=== PATIENT | male | born 1955 | race African-American/Black ===

== ENCOUNTER 2021-04-22 14:21 | Emergency (ER) | payer MEDICARE ==
[~2021-04-22] VITALS: Ht 180.3 cm; Wt 68.0 kg
[2021-04-22 14:35] VITALS: BP 159/90
[2021-04-22 20:02] LABS: BASOPHILS % 0.3 % (0.0-2.0); EOSINOPHILS % 1.4 % (0.0-5.0); HEMATOCRIT. 39.7 % (42.0-52.0); HEMOGLOBIN. 12.8 g/dL (14.0-18.0); LYMPHOCYTES % 32.3 % (20.0-50.0); MEAN CORPUSCULAR HEMOGLOBIN 28.8 pg (28.0-32.0); MEAN CORPUSCULAR VOLUME 89.7 fL (80.0-94.0); MEAN PLATELET VOLUME 8.8 fl (7.4-10.4); PLATELET 175 x1000/uL (130-400); RED BLOOD CELL COUNT 4.43 mill/uL (4.7-6.1); RED CELL DISTRIBUTION WIDTH 14.5 % (11.6-14.6)
[2021-04-22 20:16] LABS: CHLORIDE 108 mEq/L (98-107)
[2021-04-22 22:28] LABS: BASOPHILS % 0.4 % (0.0-2.0); EOSINOPHILS % 1.9 % (0.0-5.0); HEMATOCRIT. 40.1 % (42.0-52.0); LYMPHOCYTES % 27.8 % (20.0-50.0); MEAN CORPUSCULAR HEMOGLOBIN 28.9 pg (28.0-32.0); MEAN CORPUSCULAR VOLUME 89.3 fL (80.0-94.0); MONOCYTES % 10.4 % (2.0-8.0); NEUTROPHILS % 59.5 % (40.0-76.0); PLATELET 187 x1000/uL (130-400); RED BLOOD CELL COUNT 4.49 mill/uL (4.7-6.1); RED CELL DISTRIBUTION WIDTH 14.1 % (11.6-14.6)
[2021-04-22 22:38] LABS: CHLORIDE 107 mEq/L (98-107)
[2021-04-22] MEDS ORDERED: KETOROLAC 15MG/ML VIAL IV ONE (23:30)
[2021-04-22] MEDS ORDERED: ACETAMINOPHEN 325MG TABLET PO ONE (23:30)
[2021-04-23 00:48] LABS: CLARITY URINE CLEAR (CLEAR); COLOR URINE DARK YELLOW (YELLOW); KETONES URINE 2+ (NEGATIVE); LEUKOCYTE ESTERASE URINE NEGATIVE (NEGATIVE); NITRITE URINE NEGATIVE (NEGATIVE); OCCULT BLOOD URINE NEGATIVE (NEGATIVE); PH URINE 5.5 (4.5-8.0); PROTEIN URINE 2+ (NEGATIVE); SPECIFIC GRAVITY URINE 1.028 (1.005-1.030)
[2021-04-23] MEDS ORDERED: MAG355OR21 MT (03:25)
[2021-04-23] MEDS ORDERED: ONDA4TAB5 MT (03:25)
[2021-04-23] MEDS ORDERED: DICY10CA88 MT (03:25)
== END 2021-04-23 03:49 | disposition home or self-care (01) ==
LOC: ER 14:21
DX: R10.84 Generalized abdominal pain (principal); I10 Essential (primary) hypertension; Z85.038 Personal history of other malignant neoplasm of large intestine; Z90.49 Acquired absence of other specified parts of digestive tract
CPT/HCPCS: 36415; 74176; 80053; 81003; 83690; 85025; 96374; 99283; J1885

== ENCOUNTER 2023-12-04 14:06 | Emergency (ER) | payer MEDICARE, OTHER ==
[~2023-12-04] VITALS: Ht 177.8 cm; Wt 73.0 kg
[~2023-12-04 14:06] MED LIST: ALBU18HF2 PO; AMLO5TAB88 PO; HYDR-4009 PO; SIMV-43 PO
[2023-12-04 14:14] VITALS: O2SAT 100
[2023-12-04 15:02] VITALS: BP 121/79; PULSE 85; RESP 17; TEMP 36.50292; O2SAT 98
[2023-12-04 15:54] LABS: BASOPHILS % 0.7 % (0.0-2.0); EOSINOPHILS % 2.9 % (0.0-5.0); LYMPHOCYTES % 9.8 % (20.0-50.0); MEAN CORPUSCULAR HEMOGLOBIN 27.7 pg (28.0-32.0); MEAN CORPUSCULAR HGB CONC 30.6 g/dL (31.0-37.0); MEAN CORPUSCULAR VOLUME 90.7 fL (80.0-94.0); MEAN PLATELET VOLUME 9.7 fl (7.4-10.4); MONOCYTES % 13.3 % (2.0-8.0); NEUTROPHILS % 73.3 % (40.0-76.0); PLATELET 175 x1000/uL (130-400); RED BLOOD CELL COUNT 3.97 mill/uL (4.7-6.1); RED CELL DISTRIBUTION WIDTH 15.2 % (11.6-14.6)
[2023-12-04 15:57] LABS: CHLORIDE 104 mEq/L (98-107); POTASSIUM 5.1 mEq/L (3.5-5.1); SODIUM 134 mEq/L (136-145)
[2023-12-04 15:58] LABS: CALCIUM 9.5 mg/dL (8.7-10.4); CARBON DIOXIDE 21 mEq/L (21-32)
[2023-12-04 16:03] LABS: CREATININE 1.1 mg/dL (0.6-1.3); GLUCOSE 119 mg/dL (70-105); UREA NITROGEN BLOOD 25 mg/dL (9-23)
[2023-12-04 16:04] LABS: PROTHROMBIN TIME 10.9 sec (9.6-11.0)
[2023-12-04 16:05] LABS: TROPONIN I HIGH SENSITIVITY 9 ng/L (3.0-53)
== END 2023-12-04 19:18 | disposition home or self-care (01) ==
LOC: ER 14:06
DX: R55 Syncope and collapse (principal); I10 Essential (primary) hypertension; Z98.890 Other specified postprocedural states; Z79.899 Other long term (current) drug therapy; Z85.038 Personal history of other malignant neoplasm of large intestine
CPT/HCPCS: 36415; 71045; 80048; 84484; 85025; 93005; 99285

== ENCOUNTER 2024-02-14 12:12 | Emergency (ER) | payer OTHER ==
[~2024-02-14] VITALS: Ht 175.3 cm; Wt 75.0 kg
[~2024-02-14 12:12] MED LIST changes: +FOLI-43 PO; +THIA100T72 PO
[2024-02-14 12:19] VITALS: TEMP 98.3; O2SAT 100
[2024-02-14 13:44] LABS: CHLORIDE 104 mEq/L (98-107); POTASSIUM 4.1 mEq/L (3.5-5.1); SODIUM 138 mEq/L (136-145)
[2024-02-14 13:45] LABS: CARBON DIOXIDE 21 mEq/L (21-32)
[2024-02-14 13:46] LABS: CALCIUM 9.9 mg/dL (8.7-10.4)
[2024-02-14 13:48] LABS: HEMATOCRIT. 33.4 % (42.0-52.0); HEMOGLOBIN. 10.3 g/dL (14.0-18.0); MEAN CORPUSCULAR HEMOGLOBIN 30.5 pg (28.0-32.0); MEAN CORPUSCULAR HGB CONC 30.7 g/dL (31.0-37.0); MEAN CORPUSCULAR VOLUME 99.2 fL (80.0-94.0); MEAN PLATELET VOLUME 8.9 fl (7.4-10.4); PLATELET 216 x1000/uL (130-400); RED BLOOD CELL COUNT 3.37 mill/uL (4.7-6.1); RED CELL DISTRIBUTION WIDTH 17.9 % (11.6-14.6); WHITE BLOOD COUNT 4.1 x1000/uL (4.5-11.0)
[2024-02-14 13:50] LABS: CREATININE 1.2 mg/dL (0.6-1.3); GLUCOSE 95 mg/dL (70-105); UREA NITROGEN BLOOD 15 mg/dL (9-23)
[2024-02-14 13:51] LABS: TROPONIN I HIGH SENSITIVITY 12 ng/L (3.0-53)
[2024-02-14 13:54] LABS: PROTHROMBIN TIME 10.7 sec (9.6-11.0)
[2024-02-14 13:57] LABS: DIFFERENTIAL COMMENT 1
[2024-02-14 14:52] VITALS: BP 149/79; PULSE 92; RESP 16
[2024-02-14] MEDS: HYDROCODONE/ACETAMINOPHEN 5/325MG TABLET PO ONE (14:52)
[2024-02-14] MEDS ORDERED: DICL100G58 TP (15:16)
[2024-02-14 15:34] LABS: CLARITY URINE CLEAR (CLEAR); COLOR URINE YELLOW (YELLOW); GLUCOSE URINE NEGATIVE (NEGATIVE); KETONES URINE 2+ (NEGATIVE); LEUKOCYTE ESTERASE URINE NEGATIVE (NEGATIVE); NITRITE URINE NEGATIVE (NEGATIVE); OCCULT BLOOD URINE NEGATIVE (NEGATIVE); PH URINE 5.5 (4.5-8.0); PROTEIN URINE TRACE (NEGATIVE); SPECIFIC GRAVITY URINE 1.018 (1.005-1.030)
[2024-02-14 15:48] LABS: BACTERIA URINE NONE SEEN; RBC URINE 0-2 /hpf (0-2); SQUAMOUS EPITHELIAL CELL URINE RARE /lpf (RARE/1+); WBC URINE 0-2 /hpf (0-2)
[2024-02-14 16:12] LABS: PLATELET ESTIMATE NORMAL
[2024-02-14 16:16] LABS: ANISOCYTOSIS 1+
== END 2024-02-15 03:47 | disposition home or self-care (01) ==
LOC: ER 12:28
DX: R53.1 Weakness (principal); M25.531 Pain in right wrist; R51.9 Headache, unspecified; I10 Essential (primary) hypertension; Z79.899 Other long term (current) drug therapy; Z86.73 Personal history of transient ischemic attack (TIA), and cerebral infarction without residual deficits
CPT/HCPCS: 36415; 71045; 73100; 80048; 81003; 83880; 84484; 85025; 93005; 99285

== ENCOUNTER 2024-04-01 12:09 | Emergency (ER) | payer OTHER ==
[~2024-04-01] VITALS: Ht 170.2 cm; Wt 73.0 kg
[~2024-04-01 12:09] MED LIST changes: +DICL100G58 TP
[2024-04-01 12:11] VITALS: BP 132/83; PULSE 94; RESP 18; TEMP 36.8; O2SAT 100
[2024-04-01] MEDS: ACETAMINOPHEN 325MG TABLET PO ONE (14:38)
[2024-04-01 15:57] LABS: CHLORIDE 115 mEq/L (98-107); HEMATOCRIT. 38.1 % (42.0-52.0); HEMOGLOBIN. 12.2 g/dL (14.0-18.0); MEAN CORPUSCULAR HEMOGLOBIN 31.2 pg (28.0-32.0); MEAN CORPUSCULAR VOLUME 97.5 fL (80.0-94.0); MEAN PLATELET VOLUME 8.8 fl (7.4-10.4); PLATELET 254 x1000/uL (130-400); RED BLOOD CELL COUNT 3.91 mill/uL (4.7-6.1); RED CELL DISTRIBUTION WIDTH 15.1 % (11.6-14.6); SODIUM 146 mEq/L (136-145); WHITE BLOOD COUNT 4.9 x1000/uL (4.5-11.0)
[2024-04-01 15:58] LABS: CALCIUM 8.7 mg/dL (8.7-10.4); CARBON DIOXIDE 22 mEq/L (21-32)
[2024-04-01 15:59] LABS: DIFFERENTIAL COMMENT 1
[2024-04-01 16:03] LABS: CREATININE 0.9 mg/dL (0.6-1.3); GLUCOSE 80 mg/dL (70-105); UREA NITROGEN BLOOD 8 mg/dL (9-23)
[2024-04-01 16:29] LABS: PLATELET ESTIMATE NORMAL
[2024-04-01] MEDS: HYDROCODONE/ACETAMINOPHEN 5/325MG TABLET PO ONE (20:04)
[2024-04-12] MEDS ORDERED: NITR-87 MT (15:25)
== END 2024-04-01 20:17 | disposition home or self-care (01) ==
LOC: ER 12:09 → CANBEDREQ 19:12 → ER 20:17
DX: Z00.8 Encounter for other general examination (principal); I10 Essential (primary) hypertension; Z86.73 Personal history of transient ischemic attack (TIA), and cerebral infarction without residual deficits; Z79.899 Other long term (current) drug therapy
CPT/HCPCS: 36415; 80048; 85025; 99283

== ENCOUNTER 2024-09-24 20:00 | Emergency (ER) | payer MEDICARE, OTHER ==
[~2024-09-24] VITALS: Ht 177.8 cm; Wt 77.0 kg
[~2024-09-24 20:00] MED LIST changes: +AMYL1CAP59 PO; +NITR-87 MT; +PANT40TA51 PO
[2024-09-24 20:02] VITALS: O2SAT 99
[2024-09-24 20:55] LABS: BASOPHILS % 0.5 % (0.0-2.0); EOSINOPHILS % 4.2 % (0.0-5.0); HEMATOCRIT. 26.4 % (42.0-52.0); HEMOGLOBIN. 8.5 g/dL (14.0-18.0); LYMPHOCYTES % 42.5 % (20.0-50.0); MEAN PLATELET VOLUME 8.7 fl (7.4-10.4); MONOCYTES % 11.4 % (2.0-8.0); NEUTROPHILS % 41.4 % (40.0-76.0); PLATELET 201 x1000/uL (130-400); RED BLOOD CELL COUNT 2.75 mill/uL (4.7-6.1); RED CELL DISTRIBUTION WIDTH 15.7 % (11.6-14.6)
[2024-09-24 21:13] LABS: CREATININE 0.9 mg/dL (0.6-1.3)
[2024-09-24 21:14] LABS: ETHANOL BLOOD 276 mg/dL (<10); UREA NITROGEN BLOOD 13 mg/dL (9-23)
[2024-09-24 21:15] LABS: ASPARTATE AMINOTRANSFERASE 41 IU/L (<34)
[2024-09-24 21:16] LABS: BILIRUBIN DIRECT < 0.1 mg/dL (<=3.0); BILIRUBIN TOTAL < 0.2 mg/dL (0.1-1.0); PROTEIN TOTAL 6.2 g/dL (6.0-8.3)
[2024-09-24] MEDS: PANTOPRAZOLE 40MG DR TABLET PO ONE (22:21)
[2024-09-24] MEDS: HYDROCODONE/ACETAMINOPHEN 10/325MG TABLET PO ONE (22:21)
[2024-09-24] MEDS: ONDANSETRON 4MG ODT PO ONE (22:21)
[2024-09-25 00:24] VITALS: BP 86/61; PULSE 80; RESP 13; TEMP 36.8; O2SAT 99
[2024-10-12] MEDS ORDERED: OXYC-485 PO (16:15)
[2024-11-10] MEDS ORDERED: HYDR-4009 PO (12:02)
[2024-11-17] MEDS ORDERED: THIJ IM (14:25)
[2024-11-17] MEDS ORDERED: FOLI-43 PO (14:25)
== END 2024-09-25 00:26 | disposition home or self-care (01) ==
LOC: ER 20:00
DX: F10.129 Alcohol abuse with intoxication, unspecified (principal); I10 Essential (primary) hypertension; K86.1 Other chronic pancreatitis; Z85.038 Personal history of other malignant neoplasm of large intestine; Z86.73 Personal history of transient ischemic attack (TIA), and cerebral infarction without residual deficits; Z99.3 Dependence on wheelchair; Z79.899 Other long term (current) drug therapy; Y90.8 Blood alcohol level of 240 mg/100 ml or more
CPT/HCPCS: 36415; 80048; 80076; 80320; 85025; 93005; 99284; G0480

== ENCOUNTER 2024-10-04 15:17 | Emergency (ER) | payer MEDICARE, OTHER ==
[~2024-10-04] VITALS: Ht 180.3 cm; Wt 61.0 kg
[~2024-10-04 15:17] MED LIST changes: -AMYL1CAP59 PO; -NITR-87 MT; -PANT40TA51 PO
[2024-10-04 15:19] VITALS: O2SAT 100
[2024-10-04] MEDS ORDERED: ONDANSETRON HCL 4MG/2ML INJ IV ONE (15:30)
[2024-10-04] MEDS ORDERED: MORPHINE SULFATE 4 MG/ML INJ (FOR IV/IM USE) IV ONE (15:30)
[2024-10-04 16:05] LABS: BASOPHILS % 0.7 % (0.0-2.0); EOSINOPHILS % 2.7 % (0.0-5.0); HEMATOCRIT. 36.0 % (42.0-52.0); HEMOGLOBIN. 11.1 g/dL (14.0-18.0); LYMPHOCYTES % 48.3 % (20.0-50.0); MEAN PLATELET VOLUME 9.7 fl (7.4-10.4); MONOCYTES % 5.3 % (2.0-8.0); NEUTROPHILS % 43.0 % (40.0-76.0); PLATELET 141 x1000/uL (130-400); RED BLOOD CELL COUNT 3.60 mill/uL (4.7-6.1); RED CELL DISTRIBUTION WIDTH 16.0 % (11.6-14.6)
[2024-10-04 16:24] LABS: CREATININE 0.9 mg/dL (0.6-1.3); UREA NITROGEN BLOOD 10 mg/dL (9-23)
[2024-10-04 16:25] LABS: ASPARTATE AMINOTRANSFERASE 33 IU/L (<34)
[2024-10-04 16:26] LABS: BILIRUBIN DIRECT < 0.1 mg/dL (<=3.0); BILIRUBIN TOTAL < 0.2 mg/dL (0.1-1.0); PROTEIN TOTAL 7.4 g/dL (6.0-8.3)
[2024-10-04] MEDS: HYDROCODONE/ACETAMINOPHEN 10/325MG TABLET PO ONE (16:31)
[2024-10-04 21:15] VITALS: BP 110/64; PULSE 93; RESP 11; TEMP 36.4; O2SAT 99
== END 2024-10-04 22:18 | disposition home or self-care (01) ==
LOC: ER 15:17
DX: G89.29 Other chronic pain (principal); R10.9 Unspecified abdominal pain; F12.10 Cannabis abuse, uncomplicated; I10 Essential (primary) hypertension; Z79.899 Other long term (current) drug therapy; Z98.890 Other specified postprocedural states
CPT/HCPCS: 36415; 80048; 80076; 85025; 99285

== ENCOUNTER 2024-11-19 14:50 | Inpatient (IN) | payer MEDICARE, OTHER ==
[~2024-11-19] VITALS: Ht 180.3 cm; Wt 61.7 kg
[~2024-11-19 14:50] MED LIST changes: -AMLO5TAB88 PO; -DICL100G58 TP; -HYDR-4009 PO; -SIMV-43 PO; +THIJ IM
[2024-11-19 14:54] VITALS: O2SAT 98
[2024-11-19] MEDS ORDERED: KETOROLAC 15MG/ML VIAL IV ONE (15:15)
[2024-11-19 17:03] LABS: BASOPHILS % 0.6 % (0.0-2.0); EOSINOPHILS % 4.3 % (0.0-5.0); HEMATOCRIT. 36.6 % (42.0-52.0); HEMOGLOBIN. 11.3 g/dL (14.0-18.0); LYMPHOCYTES % 43.0 % (20.0-50.0); MEAN PLATELET VOLUME 8.8 fl (7.4-10.4); MONOCYTES % 6.9 % (2.0-8.0); NEUTROPHILS % 45.2 % (40.0-76.0); PLATELET 161 x1000/uL (130-400); RED BLOOD CELL COUNT 3.79 mill/uL (4.7-6.1); RED CELL DISTRIBUTION WIDTH 16.7 % (11.6-14.6)
[2024-11-19 17:18] LABS: CREATININE 0.9 mg/dL (0.6-1.3); UREA NITROGEN BLOOD 10 mg/dL (9-23)
[2024-11-19 17:28] LABS: ETHANOL BLOOD 377 mg/dL (<10)
[2024-11-19 17:44] LABS: TROPONIN I HIGH SENSITIVITY < 4 ng/L (3.0-53)
[2024-11-19] MEDS: KETOROLAC 15MG/ML VIAL IV SCH (20:27)
[2024-11-19] MEDS: SODIUM CHLORIDE 0.9% 1,000 ML IV ONE (20:27)
[2024-11-19 21:00] VITALS: BP 126/89; PULSE 70; RESP 21; TEMP 36.2; TEMP 36.2512; O2SAT 96
[2024-11-20] VITALS: BP 136/80; PULSE 75; RESP 19; TEMP 36; O2SAT 97
[2024-11-20] MEDS ORDERED: FOLIC ACID 1MG TABLET PO SCH (00:45)
[2024-11-20] MEDS ORDERED: THIAMINE HCL 100 MG/1 ML 2ML VIAL IM SCH (00:45)
[2024-11-20] MEDS ORDERED: MULTIVITAMINS,THER W-MINERALS TABLET PO SCH (00:45)
[2024-11-20] MEDS ORDERED: LORAZEPAM 1MG TABLET PO PRN (00:45)
[2024-11-20] MEDS ORDERED: NALOXONE HCL 0.4MG/ML VIAL IV PRN (01:00)
[2024-11-20] MEDS ORDERED: IPRATROPIUM/ALBUTEROL 0.5-3(2.5)MG/3ML NEB HHN PRN (01:45)
[2024-11-20] MEDS ORDERED: ONDANSETRON HCL 4MG/2ML INJ IV PRN (01:45)
[2024-11-20] MEDS ORDERED: MAGNESIUM/ALUMINUM HYDROXIDE/SIMETHICONE 30ML UDC PO PRN (01:45)
[2024-11-20] MEDS ORDERED: GUAIFENESIN 200MG/10ML SUGAR FREE UDC PO PRN (01:45)
[2024-11-20] MEDS ORDERED: DOCUSATE SODIUM 100MG CAPSULE PO PRN (01:45)
[2024-11-20] MEDS: ACETAMINOPHEN 325MG TABLET PO SCH (01:45)
[2024-11-20] MEDS ORDERED: CLONIDINE 0.1MG TABLET PO PRN (01:45)
[2024-11-20] MEDS: FOLIC ACID 1 MG, THIAMINE HCL 100 MG, MVI, ADULT NO.1 10 ML in DEXTROSE 5% WATER 1,000 ML IV ONE (02:08)
[2024-11-20 04:00] VITALS: BP 137/97; PULSE 20; RESP 20; TEMP 37.1; O2SAT 98
[2024-11-20] MEDS: KETOROLAC 30MG/ML VIAL IV PRN (05:42)
[2024-11-20 08:00] VITALS: BP 123/76; PULSE 80; RESP 19; TEMP 36.5; O2SAT 97
[2024-11-20] MEDS: PANTOPRAZOLE SODIUM 40 MG/VIAL IV SCH (08:50)
[2024-11-20] MEDS: ENOXAPARIN 40MG/0.4ML SYR SUBCUT SCH (09:00)
[2024-11-20] MEDS: MORPHINE SULFATE 4 MG/ML INJ (FOR IV/IM USE) IV PRN (09:29)
[2024-11-20 12:00] VITALS: BP 148/85; PULSE 100; RESP 19; TEMP 36.6; O2SAT 100
[2024-11-20 15:47] VITALS: BP 142/82; PULSE 100; RESP 19; TEMP 36.7; O2SAT 97
[2024-11-20 20:00] VITALS: BP 145/92; PULSE 97; RESP 20; TEMP 36.2; O2SAT 98
[2024-11-21] VITALS: BP 133/88; PULSE 87; RESP 20; TEMP 36.6; O2SAT 98
[2024-11-21 04:00] VITALS: BP 114/69; PULSE 78; RESP 19; TEMP 36.6; O2SAT 98
[2024-11-21 08:00] VITALS: BP 123/76; PULSE 83; RESP 19; TEMP 38.2; O2SAT 100
[2024-11-21 12:00] VITALS: BP 123/79; PULSE 84; RESP 19; TEMP 37.8; O2SAT 97
[2024-11-21 13:11] VITALS: BP 126/79; PULSE 84; RESP 19; TEMP 99.5
[2024-11-21 16:00] VITALS: BP 120/78; PULSE 75; RESP 19; TEMP 37.6; O2SAT 97
[2024-11-22] MEDS ORDERED: THIAMINE HCL 100MG TABLET PO SCH (09:00)
== END 2024-11-21 19:48 | disposition home or self-care (01) | DRG 438 ==
LOC: ER 14:50 → 8WST 17:29 → EDBEDREQTM 17:31 → EDBEDREQ 17:31 → ENRESERV 18:30
PROVIDERS: ADMIT Internal Medicine; ATTEND Internal Medicine
DX: K85.90 Acute pancreatitis without necrosis or infection, unspecified (principal); L89.153 Pressure ulcer of sacral region, stage 3; C18.9 Malignant neoplasm of colon, unspecified; E87.0 Hyperosmolality and hypernatremia; G89.3 Neoplasm related pain (acute) (chronic); K86.1 Other chronic pancreatitis; D18.03 Hemangioma of intra-abdominal structures; F10.229 Alcohol dependence with intoxication, unspecified; G89.4 Chronic pain syndrome; F17.210 Nicotine dependence, cigarettes, uncomplicated; I10 Essential (primary) hypertension; D64.9 Anemia, unspecified; M47.816 Spondylosis without myelopathy or radiculopathy, lumbar region; M54.16 Radiculopathy, lumbar region; Z74.01 Bed confinement status; Z86.73 Personal history of transient ischemic attack (TIA), and cerebral infarction without residual deficits; Z99.3 Dependence on wheelchair
CPT/HCPCS: 36415; 80048; 80320; 82550; 84484; 85025; 99285; A4606; J1650; J1885; J2270; J2470; J3411; J3490; J7030; J7070; G0480

== ENCOUNTER 2024-11-23 12:32 | Emergency (ER) | payer MEDICARE, OTHER ==
[~2024-11-23] VITALS: Ht 175.3 cm; Wt 73.0 kg
[2024-11-23 12:34] VITALS: O2SAT 98
[2024-11-23] MEDS: SODIUM CHLORIDE 0.9% 1,000 ML IV ONE ×2 (13:15→16:00)
[2024-11-23 15:14] LABS: BASOPHILS % 0.3 % (0.0-2.0); EOSINOPHILS % 5.6 % (0.0-5.0); HEMATOCRIT. 39.5 % (42.0-52.0); HEMOGLOBIN. 11.8 g/dL (14.0-18.0); LYMPHOCYTES % 42.4 % (20.0-50.0); MEAN PLATELET VOLUME 9.2 fl (7.4-10.4); MONOCYTES % 12.8 % (2.0-8.0); NEUTROPHILS % 38.9 % (40.0-76.0); PLATELET 69 x1000/uL (130-400); RED BLOOD CELL COUNT 3.94 mill/uL (4.7-6.1); RED CELL DISTRIBUTION WIDTH 17.0 % (11.6-14.6)
[2024-11-23 15:28] LABS: CREATININE 1.0 mg/dL (0.6-1.3)
[2024-11-23 15:29] LABS: UREA NITROGEN BLOOD 7 mg/dL (9-23)
[2024-11-23 15:30] LABS: ASPARTATE AMINOTRANSFERASE 25 IU/L (<34)
[2024-11-23 15:31] LABS: BILIRUBIN DIRECT < 0.1 mg/dL (<=3.0); BILIRUBIN TOTAL 0.2 mg/dL (0.1-1.0); PROTEIN TOTAL 6.8 g/dL (6.0-8.3)
[2024-11-23 15:37] LABS: ETHANOL BLOOD 300 mg/dL (<10)
[2024-11-23] MEDS ORDERED: CHLORDIAZEPOXIDE 25MG CAPSULE PO ONE (16:00)
[2024-11-23] MEDS: CHLORDIAZEPOXIDE 25MG CAPSULE PO SCH (17:21)
[2024-11-23 19:00] VITALS: TEMP 36.6
[2024-11-23] MEDS: ACETAMINOPHEN 325MG TABLET PO ONE (19:15)
[2024-11-24 01:21] VITALS: BP 121/81; PULSE 81; RESP 16; O2SAT 99
== END 2024-11-24 01:28 | disposition home or self-care (01) ==
LOC: ER 12:46
DX: F10.229 Alcohol dependence with intoxication, unspecified (principal); E87.0 Hyperosmolality and hypernatremia; R10.84 Generalized abdominal pain; I10 Essential (primary) hypertension; J44.9 Chronic obstructive pulmonary disease, unspecified; Z86.73 Personal history of transient ischemic attack (TIA), and cerebral infarction without residual deficits
CPT/HCPCS: 80076; 80048; 80320; 83690; 83735; 85025; 36415; 71045; 99285; J7030; G0480

== ENCOUNTER 2024-12-09 19:37 | Emergency (ER) | payer MEDICARE, OTHER ==
[~2024-12-09] VITALS: Ht 167.6 cm; Wt 73.0 kg
[2024-12-09 19:48] VITALS: O2SAT 97
[2024-12-09 21:25] VITALS: TEMP 36.8; O2SAT 98
[2024-12-09] MEDS: SODIUM CHLORIDE 0.9% 1,000 ML IV ONE (21:25)
[2024-12-09] MEDS: ACETAMINOPHEN 1000MG/100ML 100 ML IV ONE (21:57)
[2024-12-09] MEDS ORDERED: TOPUD MT (23:16)
[2024-12-09 23:30] VITALS: BP 101/65; PULSE 85; RESP 18
[2024-12-09] MEDS: HYDROCODONE/ACETAMINOPHEN 5/325MG TABLET PO ONE (23:30)
== END 2024-12-10 01:10 | disposition home or self-care (01) ==
LOC: ER 19:37 → CMPBEDREQ 12-10 07:30
DX: F10.229 Alcohol dependence with intoxication, unspecified (principal); I10 Essential (primary) hypertension; Z86.73 Personal history of transient ischemic attack (TIA), and cerebral infarction without residual deficits; Z85.038 Personal history of other malignant neoplasm of large intestine; Y90.9 Presence of alcohol in blood, level not specified
CPT/HCPCS: 99284; 96365; J7030; J0131

== ENCOUNTER 2024-12-11 15:36 | Inpatient (IN) | payer MEDICARE, OTHER ==
[~2024-12-11] VITALS: Ht 172.7 cm; Wt 56.2 kg
[~2024-12-11 15:36] MED LIST changes: -ALBU18HF2 PO; -FOLI-43 PO; -THIA100T72 PO; -THIJ IM; +TOPUD MT
[2024-12-11 15:37] VITALS: O2SAT 95
[2024-12-11] MEDS: SODIUM CHLORIDE 0.9% 1,000 ML IV ONE (16:00)
[2024-12-11 17:07] LABS: HEMATOCRIT. 34.1 % (42.0-52.0); HEMOGLOBIN. 10.8 g/dL (14.0-18.0); MEAN PLATELET VOLUME 8.3 fl (7.4-10.4); PLATELET 419 x1000/uL (130-400); RED BLOOD CELL COUNT 3.69 mill/uL (4.7-6.1); RED CELL DISTRIBUTION WIDTH 16.6 % (11.6-14.6)
[2024-12-11 17:23] LABS: CREATININE 0.7 mg/dL (0.6-1.3); UREA NITROGEN BLOOD 6 mg/dL (9-23)
[2024-12-11 17:24] LABS: TROPONIN I HIGH SENSITIVITY 7 ng/L (3.0-53)
[2024-12-11 17:25] LABS: ASPARTATE AMINOTRANSFERASE 18 IU/L (<34); BILIRUBIN DIRECT < 0.1 mg/dL (<=3.0); BILIRUBIN TOTAL < 0.2 mg/dL (0.1-1.0); PROTEIN TOTAL 6.5 g/dL (6.0-8.3)
[2024-12-11 17:56] LABS: EOSINOPHILS % MANUAL 1.0 % (0.0-5.0); LYMPHOCYTES % MANUAL 51.0 % (20.0-50.0); MONOCYTES % MANUAL 1.0 % (2.0-8.0); NEUTROPHILS % MANUAL 47.0 % (45.0-75.0); PLATELET ESTIMATE INCREASED
[2024-12-11] MEDS ORDERED: ONDANSETRON HCL 4MG/2ML INJ IV PRN (20:00)
[2024-12-11] MEDS ORDERED: DOCUSATE SODIUM 100MG CAPSULE PO PRN (20:00)
[2024-12-11] MEDS ORDERED: GUAIFENESIN 200MG/10ML SUGAR FREE UDC PO PRN (20:00)
[2024-12-11] MEDS ORDERED: LORAZEPAM 2MG/ML UD SYRINGE IV PRN (20:00)
[2024-12-11] MEDS ORDERED: IPRATROPIUM/ALBUTEROL 0.5-3(2.5)MG/3ML NEB HHN PRN (20:00)
[2024-12-11] MEDS ORDERED: CLONIDINE 0.1MG TABLET PO PRN (20:00)
[2024-12-11] MEDS ORDERED: ACETAMINOPHEN 325MG TABLET PO PRN (20:00)
[2024-12-11] MEDS: FOLIC ACID 1 MG, THIAMINE HCL 100 MG, MVI, ADULT NO.1 10 ML in DEXTROSE 5% WATER 1,000 ML IV ONE (20:14)
[2024-12-11] MEDS: IOHEXOL-300 50 ML BOTTLE IV ONE (20:29)
[2024-12-11] MEDS: PANTOPRAZOLE SODIUM 40 MG/VIAL IV SCH (22:09)
[2024-12-12] MEDS ORDERED: IOHEXOL-300 100 ML BOTTLE ONE (00:09)
[2024-12-12] MEDS: MAGNESIUM 2 G PREMIX 50 ML IV SCH (00:20)
[2024-12-12] MEDS: MAGNESIUM 2 G PREMIX 50 ML IV NR (00:21)
[2024-12-12 00:50] VITALS: BP 130/85; PULSE 83; RESP 14; TEMP 36.1956
[2024-12-12] MEDS ORDERED: MORPHINE SULFATE 2 MG/ML INJ (NOT FOR IM USE) IV PRN ×2 (01:15→16:15)
[2024-12-12 04:00] VITALS: BP 123/77; PULSE 82; RESP 18; TEMP 36.3; O2SAT 98
[2024-12-12] MEDS: PANTOPRAZOLE 40MG DR TABLET PO SCH (06:45)
[2024-12-12 07:59] VITALS: BP 120/72; PULSE 70; RESP 16; TEMP 36.7; O2SAT 98
[2024-12-12] MEDS: THIAMINE HCL 100 MG/1 ML 2ML VIAL IM SCH (08:43)
[2024-12-12] MEDS: MULTIVITAMINS,THER W-MINERALS TABLET PO SCH (08:43)
[2024-12-12] MEDS: FOLIC ACID 1MG TABLET PO SCH (08:43)
[2024-12-12] MEDS: ENOXAPARIN 40MG/0.4ML SYR SUBCUT SCH (11:27)
[2024-12-12] MEDS ORDERED: NALOXONE HCL 0.4MG/ML VIAL IV PRN (11:30)
[2024-12-12] MEDS: HYDROCODONE/ACETAMINOPHEN 5/325MG TABLET PO PRN (11:43)
[2024-12-12 12:00] VITALS: BP 144/88; PULSE 96; RESP 16; TEMP 36.4; O2SAT 99
[2024-12-12 16:00] VITALS: BP 131/70; PULSE 94; RESP 16; TEMP 37.1; O2SAT 94
[2024-12-12] MEDS: HYDROMORPHONE HCL/PF 1MG/ML INJ IV PRN (17:07)
[2024-12-12] MEDS: HYDROCODONE/ACETAMINOPHEN 10/325MG TABLET PO PRN (18:46)
[2024-12-12 20:00] VITALS: BP 139/67; PULSE 98; RESP 17; TEMP 35.9; O2SAT 98
[2024-12-13] VITALS: BP 130/71; PULSE 92; RESP 18; TEMP 36.4; O2SAT 100
[2024-12-13 08:00] VITALS: BP 126/80; PULSE 82; RESP 18; TEMP 36.1; O2SAT 100
[2024-12-13 12:00] VITALS: BP 124/71; PULSE 78; RESP 18; TEMP 36.9; O2SAT 100
[2024-12-13 16:00] VITALS: BP 126/69; PULSE 85; RESP 18; TEMP 37.1; O2SAT 100
[2024-12-13 20:00] VITALS: BP 117/90; PULSE 82; RESP 16; TEMP 37.4; O2SAT 95
[2024-12-14] VITALS (7 sets, daily range): BP systolic 122–134; BP diastolic 71–83; PULSE 72–96; RESP 16–17; TEMP 36.5–37.3; O2SAT 98–100
[2024-12-14 11:50] LABS: CREATININE 0.9 mg/dL (0.6-1.3)
[2024-12-14 11:51] LABS: UREA NITROGEN BLOOD 9 mg/dL (9-23)
[2024-12-14] MEDS ORDERED: THIA100T72 PO (13:19)
[2024-12-14] MEDS ORDERED: PANT40TA51 PO (13:19)
[2024-12-14] MEDS ORDERED: FOLI-43 PO (13:19)
[2024-12-15] MEDS ORDERED: THIAMINE HCL 100MG TABLET PO SCH (09:00)
== END 2024-12-14 23:52 | disposition home health service (06) | DRG 438 ==
LOC: ER 15:36 → 8EST 19:28 → EDBEDREQTM 19:31 → EDBEDREQ 19:31 → ENRESERV 23:46 → 5WST 12-12 02:50
PROVIDERS: ADMIT Hospitalist; ATTEND Hospitalist
DX: K85.90 Acute pancreatitis without necrosis or infection, unspecified (principal); G93.41 Metabolic encephalopathy; E87.0 Hyperosmolality and hypernatremia; D64.9 Anemia, unspecified; D72.819 Decreased white blood cell count, unspecified; E83.42 Hypomagnesemia; Z66 Do not resuscitate; F10.229 Alcohol dependence with intoxication, unspecified; I10 Essential (primary) hypertension; K52.9 Noninfective gastroenteritis and colitis, unspecified; K62.89 Other specified diseases of anus and rectum; K86.1 Other chronic pancreatitis; F17.200 Nicotine dependence, unspecified, uncomplicated; Z85.028 Personal history of other malignant neoplasm of stomach; Z85.038 Personal history of other malignant neoplasm of large intestine; Z86.73 Personal history of transient ischemic attack (TIA), and cerebral infarction without residual deficits; Z90.49 Acquired absence of other specified parts of digestive tract; Z90.5 Acquired absence of kidney; Z99.3 Dependence on wheelchair; Y90.8 Blood alcohol level of 240 mg/100 ml or more
CPT/HCPCS: 36415; 71045; 74177; 80048; 80076; 80320; 82140; 83735; 84484; 85025; 93005; 93970; 94640; 99285; J1171; J1650; J2470; J3411; J3475; J3490; J7030; J7070; Q9967; G0480

== ENCOUNTER 2024-12-15 20:16 | Emergency (ER) | payer MEDICARE, OTHER ==
[~2024-12-15] VITALS: Ht 172.7 cm; Wt 69.0 kg
[~2024-12-15 20:16] MED LIST changes: +ALBU18HF2 PO; +AMLO5TAB88 PO; +AMYL1CAP59 PO; +DICL100G58 TP; +FOLI-43 PO; +HYDR-4009 PO; +NITR-87 MT; +OXYC-485 PO; +PANT40TA51 PO; +SIMV-43 PO; +THIA100T72 PO; +THIJ IM
[2024-12-15 20:29] VITALS: TEMP 36.9; O2SAT 98
[2024-12-15] MEDS: ONDANSETRON HCL 4MG/2ML INJ IV ONE (22:00)
[2024-12-15] MEDS: SODIUM CHLORIDE 0.9% 1,000 ML IV ONE (22:00)
[2024-12-16 03:22] VITALS: BP 103/62; PULSE 63; RESP 14
== END 2024-12-16 03:34 | disposition home or self-care (01) ==
LOC: ER 20:16 → CMPBEDREQ 12-16 07:43
DX: R51.9 Headache, unspecified (principal); F10.10 Alcohol abuse, uncomplicated; I10 Essential (primary) hypertension; Z85.038 Personal history of other malignant neoplasm of large intestine; Y90.9 Presence of alcohol in blood, level not specified
CPT/HCPCS: 99284; 93005; J7030

== ENCOUNTER 2024-12-17 21:21 | Emergency (ER) | payer MEDICARE, OTHER ==
[~2024-12-17] VITALS: Ht 172.7 cm; Wt 69.0 kg
[~2024-12-17 21:21] MED LIST changes: -ALBU18HF2 PO; -AMLO5TAB88 PO; -AMYL1CAP59 PO; -DICL100G58 TP; -HYDR-4009 PO; -NITR-87 MT; -OXYC-485 PO; -SIMV-43 PO; -THIJ IM; -TOPUD MT
[2024-12-17 21:28] VITALS: TEMP 36.8; O2SAT 98
[2024-12-17] MEDS: KETOROLAC 30MG/ML VIAL IM ONE (23:12)
[2024-12-18 02:47] VITALS: BP 129/79; PULSE 86; RESP 18; O2SAT 100
== END 2024-12-18 03:32 | disposition home or self-care (01) ==
LOC: ER 21:21
DX: G89.29 Other chronic pain (principal); R10.9 Unspecified abdominal pain; F10.90 Alcohol use, unspecified, uncomplicated; I10 Essential (primary) hypertension; Z85.028 Personal history of other malignant neoplasm of stomach; Z86.73 Personal history of transient ischemic attack (TIA), and cerebral infarction without residual deficits; Y90.9 Presence of alcohol in blood, level not specified
CPT/HCPCS: 99283; 74018; 96372; J1885

== ENCOUNTER 2024-12-20 18:16 | Emergency (ER) | payer MEDICARE, OTHER ==
[~2024-12-20] VITALS: Ht 162.6 cm; Wt 76.0 kg
[2024-12-20 18:28] VITALS: O2SAT 98
[2024-12-20 20:44] LABS: HEMATOCRIT. 30.6 % (42.0-52.0); HEMOGLOBIN. 9.7 g/dL (14.0-18.0); MEAN PLATELET VOLUME 10.2 fl (7.4-10.4); PLATELET 165 x1000/uL (130-400); RED BLOOD CELL COUNT 3.26 mill/uL (4.7-6.1); RED CELL DISTRIBUTION WIDTH 17.2 % (11.6-14.6)
[2024-12-20] MEDS: MORPHINE SULFATE 4 MG/ML INJ (FOR IV/IM USE) IV ONE (20:55)
[2024-12-20 21:00] LABS: CREATININE 0.9 mg/dL (0.6-1.3)
[2024-12-20 21:01] LABS: UREA NITROGEN BLOOD 9 mg/dL (9-23)
[2024-12-20 21:03] LABS: ASPARTATE AMINOTRANSFERASE 21 IU/L (<34); BILIRUBIN DIRECT 0.3 mg/dL (<=3.0); BILIRUBIN TOTAL 0.8 mg/dL (0.1-1.0); PROTEIN TOTAL 6.4 g/dL (6.0-8.3)
[2024-12-20 21:07] LABS: LYMPHOCYTES % MANUAL 19.0 % (20.0-50.0); MONOCYTES % MANUAL 6.0 % (2.0-8.0); NEUTROPHILS % MANUAL 75.0 % (45.0-75.0); PLATELET ESTIMATE NORMAL
[2024-12-21] MEDS: MORPHINE SULFATE 4 MG/ML INJ (FOR IV/IM USE) IV ONE (01:05)
[2024-12-21 02:22] VITALS: BP 142/81; PULSE 95; RESP 18; TEMP 37.1; O2SAT 98
[2024-12-22] MEDS ORDERED: AMLO5TAB6 MT (10:30)
== END 2024-12-21 02:34 | disposition home or self-care (01) ==
LOC: ER 18:16 → CMPBEDREQ 12-21 03:16
DX: R10.9 Unspecified abdominal pain (principal); I10 Essential (primary) hypertension; Z85.07 Personal history of malignant neoplasm of pancreas; Z85.038 Personal history of other malignant neoplasm of large intestine
CPT/HCPCS: 99285; 74176; 96374; 80076; 80048; 83690; 85025; 36415; 96376; J2270 ×2

== ENCOUNTER 2024-12-26 20:08 | Inpatient (IN) | payer OTHER, MEDICARE ==
[~2024-12-26] VITALS: Ht 180.3 cm; Wt 56.7 kg
[~2024-12-26 20:08] MED LIST changes: +AMLO5TAB6 MT; +FERR-63 PO; +HYDR-4009 MT; +LIPA1CAP27 PO
[2024-12-26 20:20] VITALS: O2SAT 99
[2024-12-26] MEDS: ONDANSETRON HCL 4MG/2ML INJ IV ONE (20:30)
[2024-12-26] MEDS: MORPHINE SULFATE 4 MG/ML INJ (FOR IV/IM USE) IV ONE (20:30)
[2024-12-26 23:18] LABS: BASOPHILS % 0.4 % (0.0-2.0); EOSINOPHILS % 1.1 % (0.0-5.0); HEMATOCRIT. 31.8 % (42.0-52.0); HEMOGLOBIN. 10.1 g/dL (14.0-18.0); LYMPHOCYTES % 44.3 % (20.0-50.0); MEAN PLATELET VOLUME 9.0 fl (7.4-10.4); MONOCYTES % 7.6 % (2.0-8.0); NEUTROPHILS % 46.6 % (40.0-76.0); PLATELET 261 x1000/uL (130-400); RED BLOOD CELL COUNT 3.37 mill/uL (4.7-6.1); RED CELL DISTRIBUTION WIDTH 17.0 % (11.6-14.6)
[2024-12-26 23:30] LABS: CREATININE 0.8 mg/dL (0.6-1.3)
[2024-12-26 23:31] LABS: UREA NITROGEN BLOOD 8 mg/dL (9-23)
[2024-12-26 23:32] LABS: ASPARTATE AMINOTRANSFERASE 8 IU/L (<34)
[2024-12-26 23:33] LABS: BILIRUBIN DIRECT < 0.1 mg/dL (<=3.0); BILIRUBIN TOTAL < 0.2 mg/dL (0.1-1.0); PROTEIN TOTAL 7.0 g/dL (6.0-8.3)
[2024-12-27] MEDS ORDERED: MAGNESIUM/ALUMINUM HYDROXIDE/SIMETHICONE 30ML UDC PO PRN (02:45)
[2024-12-27] MEDS ORDERED: ACETAMINOPHEN 325MG TABLET PO PRN ×2 (02:45)
[2024-12-27] MEDS ORDERED: TRAMADOL 50MG TABLET PO PRN (02:45)
[2024-12-27] MEDS ORDERED: CLONIDINE 0.1MG TABLET PO PRN (02:45)
[2024-12-27] MEDS: HYDROCODONE/ACETAMINOPHEN 10/325MG TABLET PO PRN (03:49)
[2024-12-27 03:57] VITALS: BP 97/75; PULSE 88; RESP 20; TEMP 36.418
[2024-12-27 08:00] VITALS: BP 105/69; PULSE 98; RESP 15; TEMP 37; O2SAT 97
[2024-12-27] MEDS: ENOXAPARIN 40MG/0.4ML SYR SUBCUT SCH (09:00)
[2024-12-27 12:00] VITALS: BP 95/59; PULSE 110; RESP 17; TEMP 36.9; O2SAT 97
[2024-12-27] MEDS: LIPASE/PROTEASE/AMYLASE 4,200/14,200/24,600 UNITS CAP DR PO SCH (13:22)
[2024-12-27] MEDS ORDERED: LOPERAMIDE HCL 2MG CAPSULE PO PRN (15:15)
[2024-12-27 16:00] VITALS: BP 98/61; PULSE 89; RESP 17; TEMP 36.5; O2SAT 100
[2024-12-27 20:00] VITALS: BP 114/63; PULSE 87; RESP 20; TEMP 36.7; O2SAT 100
[2024-12-27] MEDS: POTASSIUM CHLORIDE 20MEQ/PACKET PO SCH (21:55)
[2024-12-28] VITALS: BP 106/66; PULSE 85; RESP 20; TEMP 36.6; O2SAT 98
[2024-12-28 04:00] VITALS: BP 107/51; PULSE 64; RESP 18; TEMP 36.3; O2SAT 99
[2024-12-28 08:00] VITALS: BP 110/69; PULSE 77; RESP 17; TEMP 36.3; O2SAT 100
[2024-12-28 12:00] VITALS: BP 107/69; PULSE 78; RESP 15; TEMP 36.3; O2SAT 94
[2024-12-28 16:00] VITALS: BP 106/63; PULSE 83; RESP 18; TEMP 35.8; O2SAT 98
[2024-12-28 20:00] VITALS: BP 110/70; PULSE 91; RESP 18; TEMP 36.6; O2SAT 98
[2024-12-29] VITALS: BP 108/66; PULSE 72; RESP 18; TEMP 36; O2SAT 100
[2024-12-29 04:00] VITALS: BP 100/59; PULSE 64; RESP 18; TEMP 36.6; O2SAT 100
[2024-12-29 07:47] LABS: CREATININE 0.8 mg/dL (0.6-1.3); UREA NITROGEN BLOOD 7 mg/dL (9-23)
[2024-12-29 08:00] VITALS: BP 105/67; PULSE 72; RESP 15; TEMP 36.4; O2SAT 96
[2024-12-29] MEDS: ONDANSETRON HCL 4MG/2ML INJ IV PRN (09:37)
[2024-12-29] MEDS ORDERED: FOLI-43 PO (10:15)
[2024-12-29] MEDS ORDERED: FERR-63 PO (10:15)
[2024-12-29] MEDS ORDERED: PANT40TA51 PO (10:15)
[2024-12-29] MEDS ORDERED: AMLO5TAB6 MT (10:15)
[2024-12-29] MEDS ORDERED: HYDR-4009 MT (10:15)
[2024-12-29] MEDS ORDERED: LIPA1CAP27 PO (10:15)
[2024-12-29] MEDS ORDERED: THIA100T72 PO (10:15)
[2024-12-29 12:00] VITALS: BP 106/71; PULSE 71; RESP 13; TEMP 36.4; O2SAT 94
[2024-12-29] MEDS: ONDANSETRON HCL 4MG TABLET PO PRN (12:14)
[2024-12-29 14:30] VITALS: BP 122/75; PULSE 71; RESP 14; TEMP 97.6
== END 2024-12-29 15:45 | disposition home health service (06) | DRG 440 ==
LOC: ER 20:08 → ENRESERV 12-27 01:07 → 6WST 12-27 02:13
PROVIDERS: ADMIT Student in an Organized Health Care Education/Training Program; ATTEND Student in an Organized Health Care Education/Training Program
DX: K86.1 Other chronic pancreatitis (principal); D64.9 Anemia, unspecified; I10 Essential (primary) hypertension; F10.229 Alcohol dependence with intoxication, unspecified; I69.398 Other sequelae of cerebral infarction; K52.9 Noninfective gastroenteritis and colitis, unspecified; E87.6 Hypokalemia; Z99.3 Dependence on wheelchair; Z85.038 Personal history of other malignant neoplasm of large intestine
CPT/HCPCS: 36415; 80048; 80076; 80320; 83735; 85025; 99285; J1650; J2405; Q0162; G0480

== ENCOUNTER 2025-01-26 22:20 | Inpatient (IN) | payer MEDICARE, OTHER ==
[~2025-01-26] VITALS: Ht 180.3 cm; Wt 74.0 kg
[2025-01-26 22:23] VITALS: O2SAT 99
[2025-01-26] MEDS: ONDANSETRON HCL 4MG/2ML INJ IV ONE (23:03)
[2025-01-26] MEDS: SODIUM CHLORIDE 0.9% 1,000 ML IV ONE (23:03)
[2025-01-26] MEDS: MORPHINE SULFATE 4 MG/ML INJ (FOR IV/IM USE) IV ONE (23:04)
[2025-01-26 23:16] LABS: HEMATOCRIT. 29.3 % (42.0-52.0); HEMOGLOBIN. 9.2 g/dL (14.0-18.0); MEAN PLATELET VOLUME 9.2 fl (7.4-10.4); PLATELET 276 x1000/uL (130-400); RED BLOOD CELL COUNT 3.03 mill/uL (4.7-6.1); RED CELL DISTRIBUTION WIDTH 17.6 % (11.6-14.6)
[2025-01-26 23:21] LABS: CREATININE 1.3 mg/dL (0.6-1.3); ETHANOL BLOOD 172 mg/dL (<10); UREA NITROGEN BLOOD 26 mg/dL (9-23)
[2025-01-26 23:23] LABS: ASPARTATE AMINOTRANSFERASE 13 IU/L (<34); BILIRUBIN DIRECT 0.3 mg/dL (<=3.0); BILIRUBIN TOTAL 0.7 mg/dL (0.1-1.0); PROTEIN TOTAL 6.5 g/dL (6.0-8.3)
[2025-01-27] MEDS: MAGNESIUM 2 G PREMIX 50 ML IV ONE (00:42)
[2025-01-27 06:03] LABS: BAND% 2.0 % (1.0-6.0); EOSINOPHILS % MANUAL 2.0 % (0.0-5.0); LYMPHOCYTES % MANUAL 9.0 % (20.0-50.0); MONOCYTES % MANUAL 8.0 % (2.0-8.0); NEUTROPHILS % MANUAL 79.0 % (45.0-75.0); NUCLEATED RED BLOOD CELLS 2 /100 WBC; PLATELET ESTIMATE NORMAL
[2025-01-27] MEDS ORDERED: ONDANSETRON HCL 4MG/2ML INJ IV PRN (11:15)
[2025-01-27] MEDS ORDERED: LORAZEPAM 1MG TABLET PO PRN (11:15)
[2025-01-27 11:30] VITALS: BP 116/77; PULSE 80; RESP 14; TEMP 36.3068
[2025-01-27] MEDS: HYDROCODONE/ACETAMINOPHEN 10/325MG TABLET PO PRN (11:54)
[2025-01-27 12:00] VITALS: BP 115/77; PULSE 72; RESP 17; TEMP 36.6; O2SAT 99
[2025-01-27 16:00] VITALS: BP 106/48; PULSE 94; RESP 20; TEMP 36.6
[2025-01-27] MEDS: MAGNESIUM 2 G PREMIX 50 ML IV SCH (16:44)
[2025-01-27 20:00] VITALS: BP 115/80; PULSE 99; RESP 18; TEMP 36.9; O2SAT 98
[2025-01-27 22:00] VITALS: BP 118/75; PULSE 77; RESP 17; O2SAT 97
[2025-01-28] VITALS (7 sets, daily range): BP systolic 96–115; BP diastolic 69–84; PULSE 72–94; RESP 12–69; TEMP 36.4–37.1; O2SAT 94–100
[2025-01-28] MEDS: MORPHINE SULFATE 2 MG/ML INJ (NOT FOR IM USE) IV NR (00:27)
[2025-01-28] MEDS: PANTOPRAZOLE 40MG DR TABLET PO SCH (08:28)
[2025-01-28] MEDS ORDERED: HYDR-4009 MT (14:50)
== END 2025-01-28 23:32 | disposition home or self-care (01) | DRG 896 ==
LOC: ER 22:20 → 5EST 01-27 01:04 → EDBEDREQ 01-27 01:06 → EDBEDREQTM 01-27 01:06 → EDBEDREQDT 01-27 01:06 → ENRESERV 01-27 07:00
PROVIDERS: ADMIT Internal Medicine; ATTEND Internal Medicine
DX: F10.129 Alcohol abuse with intoxication, unspecified (principal); L89.153 Pressure ulcer of sacral region, stage 3; L89.623 Pressure ulcer of left heel, stage 3; L89.613 Pressure ulcer of right heel, stage 3; I10 Essential (primary) hypertension; K86.1 Other chronic pancreatitis; R10.84 Generalized abdominal pain; G89.29 Other chronic pain; Y90.9 Presence of alcohol in blood, level not specified; Z85.038 Personal history of other malignant neoplasm of large intestine; Z90.49 Acquired absence of other specified parts of digestive tract; Z86.73 Personal history of transient ischemic attack (TIA), and cerebral infarction without residual deficits; Z79.899 Other long term (current) drug therapy
CPT/HCPCS: 36415; 74176; 76700; 80048; 80076; 80320; 83735; 85025; 93005; 96361; 96374; 96375; 99285; A4606; J2270; J2405; J3475; J7030; G0480

== ENCOUNTER 2025-02-13 21:17 | Emergency (ER) | payer OTHER ==
[~2025-02-13] VITALS: Ht 170.2 cm; Wt 61.0 kg
[2025-02-13 21:19] VITALS: O2SAT 96
[2025-02-13] MEDS ORDERED: HYDR-4009 MT (22:13)
[2025-02-14 00:05] VITALS: BP 124/75; PULSE 100; RESP 17; TEMP 36.8; O2SAT 97
[2025-02-15] MEDS ORDERED: TRAM50TA3 MT (00:38)
== END 2025-02-14 00:05 | disposition home or self-care (01) ==
LOC: ER 21:17
DX: G89.29 Other chronic pain (principal); R10.9 Unspecified abdominal pain; I10 Essential (primary) hypertension; Z79.899 Other long term (current) drug therapy
CPT/HCPCS: 99283; A4606

== ENCOUNTER 2025-02-14 21:28 | Emergency (ER) | payer OTHER ==
[~2025-02-14] VITALS: Ht 180.3 cm; Wt 68.0 kg
[2025-02-14 21:32] VITALS: O2SAT 99
[2025-02-15] MEDS ORDERED: TRAM50TA3 MT (00:38)
[2025-02-15] MEDS: METOCLOPRAMIDE HCL 10MG/2ML VIAL IM ONE (00:42)
[2025-02-15] MEDS: PANTOPRAZOLE 40MG DR TABLET PO ONE (00:43)
[2025-02-15] MEDS: ACETAMINOPHEN 500MG TABLET PO ONE (00:43)
[2025-02-15] MEDS: TRAMADOL 50MG TABLET PO ONE (01:04)
[2025-02-15 01:19] LABS: HEMATOCRIT. 30.1 % (42.0-52.0); HEMOGLOBIN. 9.5 g/dL (14.0-18.0); MEAN PLATELET VOLUME 10.0 fl (7.4-10.4); PLATELET 112 x1000/uL (130-400); RED BLOOD CELL COUNT 3.15 mill/uL (4.7-6.1); RED CELL DISTRIBUTION WIDTH 17.6 % (11.6-14.6)
[2025-02-15 01:30] LABS: CREATININE 0.7 mg/dL (0.6-1.3); ETHANOL BLOOD 153 mg/dL (<10); PROTEIN TOTAL 6.1 g/dL (6.0-8.3); UREA NITROGEN BLOOD 11 mg/dL (9-23)
[2025-02-15 01:31] LABS: ASPARTATE AMINOTRANSFERASE 20 IU/L (<34)
[2025-02-15 01:32] LABS: BILIRUBIN DIRECT 0.3 mg/dL (<=3.0); BILIRUBIN TOTAL 0.5 mg/dL (0.1-1.0)
[2025-02-15 01:50] LABS: LYMPHOCYTES % MANUAL 20.0 % (20.0-50.0); MONOCYTES % MANUAL 8.0 % (2.0-8.0); NEUTROPHILS % MANUAL 72.0 % (45.0-75.0); PLATELET ESTIMATE SLIGHTLY DECREASED
[2025-02-15 02:53] VITALS: BP 94/58; PULSE 84; RESP 16; TEMP 36.8; O2SAT 99
== END 2025-02-15 03:00 | disposition home or self-care (01) ==
LOC: ER 21:43
DX: G89.29 Other chronic pain (principal); R10.9 Unspecified abdominal pain; I10 Essential (primary) hypertension; F17.200 Nicotine dependence, unspecified, uncomplicated; Z85.038 Personal history of other malignant neoplasm of large intestine; Z79.899 Other long term (current) drug therapy; Z90.49 Acquired absence of other specified parts of digestive tract; Z85.05 Personal history of malignant neoplasm of liver
CPT/HCPCS: 36415; 99285; 80076; 80048; 80320; 83690; 85025; 96372; J2765; G0480

== ENCOUNTER 2025-02-23 09:29 | Inpatient (IN) | payer OTHER ==
[~2025-02-23] VITALS: Ht 152.4 cm; Wt 57.6 kg
[2025-02-23 09:30] VITALS: O2SAT 95
[2025-02-23 10:38] LABS: HEMATOCRIT. 33.8 % (42.0-52.0); HEMOGLOBIN. 11.1 g/dL (14.0-18.0); RED BLOOD CELL COUNT 3.61 mill/uL (4.7-6.1); RED CELL DISTRIBUTION WIDTH 17.8 % (11.6-14.6)
[2025-02-23 11:49] LABS: EOSINOPHILS % MANUAL 1.0 % (0.0-5.0); LYMPHOCYTES % MANUAL 26.0 % (20.0-50.0); MONOCYTES % MANUAL 7.0 % (2.0-8.0); NEUTROPHILS % MANUAL 66.0 % (45.0-75.0); PLATELET ESTIMATE INCREASED
[2025-02-23 11:50] LABS: PLATELET 279 x1000/uL (130-400)
[2025-02-23 13:29] LABS: CREATININE 0.8 mg/dL (0.6-1.3); UREA NITROGEN BLOOD 7 mg/dL (9-23)
[2025-02-23 13:30] LABS: PROTEIN TOTAL 5.9 g/dL (6.0-8.3)
[2025-02-23 13:31] LABS: ASPARTATE AMINOTRANSFERASE 23 IU/L (<34); BILIRUBIN DIRECT < 0.1 mg/dL (<=3.0)
[2025-02-23 13:32] LABS: BILIRUBIN TOTAL 0.2 mg/dL (0.1-1.0)
[2025-02-23] MEDS ORDERED: ONDANSETRON HCL 4MG/2ML INJ IV PRN (14:15)
[2025-02-23] MEDS ORDERED: IPRATROPIUM/ALBUTEROL 0.5-3(2.5)MG/3ML NEB HHN PRN (14:15)
[2025-02-23] MEDS ORDERED: ACETAMINOPHEN 325MG TABLET PO PRN ×2 (14:15)
[2025-02-23] MEDS ORDERED: CLONIDINE 0.1MG TABLET PO PRN (14:15)
[2025-02-23] MEDS ORDERED: DOCUSATE SODIUM 100MG CAPSULE PO PRN (14:15)
[2025-02-23] MEDS: SODIUM CHLORIDE 0.9% 1,000 ML IV SCH (14:22)
[2025-02-23 15:12] VITALS: BP 102/69; PULSE 89; RESP 18; TEMP 36.5; TEMP 36.5292; O2SAT 97
[2025-02-23] MEDS: PANTOPRAZOLE SODIUM 40 MG/VIAL IV SCH (16:29)
[2025-02-23] MEDS ORDERED: NALOXONE HCL 0.4MG/ML VIAL IV PRN (17:15)
[2025-02-23] MEDS: HYDROCODONE/ACETAMINOPHEN 5/325MG TABLET PO PRN (17:45)
[2025-02-23 20:00] VITALS: BP 96/60; PULSE 91; RESP 18; TEMP 36.4; O2SAT 98
[2025-02-24] VITALS (7 sets, daily range): BP systolic 95–120; BP diastolic 53–69; PULSE 60–86; RESP 17–18; TEMP 36.2–36.5; O2SAT 95–100
[2025-02-24] MEDS: AMLODIPINE 5MG TABLET PO SCH (16:10)
== END 2025-02-24 17:44 | disposition short-term general hospital (02) | DRG 440 ==
LOC: ER 09:29 → 7WST 13:35 → EDBEDREQSVC 13:38 → EDBEDREQ 13:38 → EDBEDREQTM 13:38
PROVIDERS: ADMIT Family Medicine Adult Medicine; ATTEND Family Medicine Adult Medicine
DX: K86.1 Other chronic pancreatitis (principal); D64.9 Anemia, unspecified; I10 Essential (primary) hypertension; F11.10 Opioid abuse, uncomplicated; F10.20 Alcohol dependence, uncomplicated; I69.30 Unspecified sequelae of cerebral infarction; E87.5 Hyperkalemia; G89.29 Other chronic pain; F12.10 Cannabis abuse, uncomplicated; Z76.5 Malingerer [conscious simulation]; Z85.038 Personal history of other malignant neoplasm of large intestine; Z90.49 Acquired absence of other specified parts of digestive tract; Z99.3 Dependence on wheelchair
CPT/HCPCS: 36415; 74176; 80048; 80076; 84132; 85025; 99285; J2470